=== PATIENT | female | born 1990 | race Caucasian/White ===

== ENCOUNTER 2017-04-23 10:27 | Emergency (ER) | payer MEDICAID ==
[~2017-04-23] VITALS: Ht 165.1 cm; Wt 74.8 kg
[2017-04-23 10:38] VITALS: BP 116/75; Ht 165.1 cm; Wt 74.8 kg
[2017-04-23 13:55] LABS: BASOPHIL % 0.2 % (0-2); PLATELET COUNT 239 x10^3mcL (130-400); RED CELL DISTRIBUTION WIDTH 12.5 % (11.5-14.5)
[2017-04-23 14:04] LABS: CALCIUM 8.8 mg/dL (8.5-10.1); CARBON DIOXIDE 26.6 mmol/L (21-32); CHLORIDE SERUM 103 mmol/L (98-107); CREATININE SERUM 0.7 mg/dL (0.6-1.0); GFR1 > 60 mL/min; GLUCOSE SERUM 82 mg/dL (74-106); SODIUM SERUM 139 mmol/L (136-145)
[2017-04-23 14:10] LABS: ALBUMIN 3.5 g/dL (3.4-5.0); ALKALINE PHOSPHATASE 97 U/L (46-116); ALT/SGPT 16 U/L (14-59); AMYLASE 29 U/L (25-115); AST/SGOT 13 U/L (15-37); BILIRUBIN TOTAL 0.6 mg/dL (0.20-1.00); LIPASE 81 IU/L (73-393); TOTAL PROTEIN, SERUM 7.5 g/dL (6.4-8.2)
== END 2017-04-23 15:55 | disposition home or self-care (01) ==
LOC: ED 10:27
PROVIDERS: Specialist
DX: N83.201 Unspecified ovarian cyst, right side (principal); R30.0 Dysuria
CPT/HCPCS: 36415; J1885